=== PATIENT | male | born 1985 | race African-American/Black ===

== ENCOUNTER 2019-11-07 00:25 | Emergency (ER) | payer SELFPAY ==
[2019-11-07] MEDS ORDERED: Lidocaine 1% w/Epinephrine 1:100K 20 ML VIAL ONE (00:47)
[2019-11-07] MEDS ORDERED: Sulfameth/Trimethoprim DS 800-160mg TAB ONE (01:10)
== END 2019-11-07 01:15 | disposition home or self-care (01) ==
LOC: ERS 00:25
DX: L02.31 Cutaneous abscess of buttock (principal); F41.9 Anxiety disorder, unspecified
CPT/HCPCS: 10060

== ENCOUNTER 2020-03-04 02:32 | Emergency (ER) | payer OTHER ==
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
== END 2020-03-04 04:09 ==
LOC: EEVIPCON 02:32 → ERS 02:32
DX: S00.83XA Contusion of other part of head, initial encounter (principal); S80.211A Abrasion, right knee, initial encounter; S50.311A Abrasion of right elbow, initial encounter; F41.9 Anxiety disorder, unspecified; D64.9 Anemia, unspecified; W22.01XA Walked into wall, initial encounter
CPT/HCPCS: 70450; 72125